=== PATIENT | female | born 1985 | race Caucasian/White ===

== ENCOUNTER 2017-12-23 18:22 | Emergency (ER) | payer OTHER ==
[~2017-12-23] VITALS: Ht 165.1 cm; Wt 84.8 kg
[2017-12-23 18:48] VITALS: BP 104/61
--- NOTE | 2017-12-23 20:11 | NUR ---
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 Patient denies any vaginal bleeding. Patient states she is 9 wks. LMP 10/13/17. A1. pt reports that the pain feels like cramping. a&o x 4. gcs 15. cms intact. rr even and unlabored. lungs bilaterally clear. er md conde notified. pt needs met. safety precautions in place. will continue to monitor.
--- NOTE | 2017-12-23 20:21 | NUR ---
Dr. Guzman evaluating patient at bedside.
[2017-12-23 20:23] LABS: BASOPHILS % (AUTO) 0.4 % (0.0-2.0); EOSINOPHILS # (AUTO) 0.2 K/uL (0-0.4); EOSINOPHILS % (AUTO) 1.6 % (0.0-4.0); HEMATOCRIT 40.3 % (36-48); HEMOGLOBIN 12.9 g/dL (12.0-16.0); LYMPHOCYTES # (AUTO) 2.8 K/uL (2.5-16.5); LYMPHOCYTES % (AUTO) 24.7 % (20.5-51.1); MEAN CORPUSCULAR HEMOGLOBIN 27 pg (27-31); MEAN CORPUSCULAR HGB CONC 32 g/dL (33-37); MEAN CORPUSCULAR VOLUME 83.5 fL (80-94); MONOCYTES % (AUTO) 8.8 % (1.7-9.3); NEUTROPHILS # (AUTO) 7.2 K/uL (1.8-7.7); NEUTROPHILS % (AUTO) 64.5 % (42.2-75.2); PLATELET COUNT (AUTO) 211 K/uL (140-450); RED BLOOD CELL COUNT(AUTO) 4.83 MIL/uL (4.20-5.40); RED CELL DISTRIBUTION WIDTH 15.4 % (11.6-13.7); WHITE BLOOD COUNT (AUTO) 11.2 K/uL (4.8-10.8)
[2017-12-23 20:39] LABS: ANION GAP 7.3 (8-16); CARBON DIOXIDE 24.8 mmol/L (21-32); CREATININE 0.7 mg/dL (0.6-1.3); POTASSIUM 3.1 mmol/L (3.5-5.1)
[2017-12-23 20:40] LABS: APPEARANCE,URINE CLEAR (CLEAR); BILIRUBIN,URINE NEGATIVE (NEGATIVE); BLOOD, URINE NEGATIVE (NEGATIVE); COLOR,URINE YELLOW (YELLOW); LEUKOCYTE ESTERASE ,URINE NEGATIVE (NEGATIVE); NITRITE, URINE NEGATIVE (NEGATIVE); PH,URINE 5.5 (5.0-9.0); UGLUCOSE NEGATIVE (NEGATIVE)
[2017-12-23 20:44] LABS: ALBUMIN 3.4 g/dL (3.4-5.0); TOTAL BILIRUBIN 0.2 mg/dL (0.0-1.0)
--- NOTE | 2017-12-23 20:54 | NUR ---
ULTRASOUND AT BEDSIDE, NO S/S OF DISTRESS NOTED AT THE MOMENT.
--- NOTE | 2017-12-23 20:54 | NUR ---
Allegra santana in [facility] - 12/23/17 at 2054 by GINNA Ultrasound at bedside.
--- NOTE | 2017-12-23 20:58 | NUR ---
Report given to CHIQUIS Easley at this time.
[2017-12-23] MEDS ORDERED: POTASSIUM CHLORIDE 10 MEQ TABER PO ONE (21:40)
[2017-12-23 22:24] VITALS: BP 131/86
--- NOTE | 2017-12-23 22:24 | NUR ---
Patient discharged with v/s stable. Written and verbal after care instructions given and explained. Patient verbalized understanding. Ambulatory with steady gait. All questions addressed prior to discharge. Advised to follow up with PMD, COPIES OF LABS AND ULTRASOUND PROVIDED TO PT.
== END 2017-12-23 22:24 | disposition home or self-care (01) ==
LOC: MED 18:22
DX: O20.0 Threatened abortion (principal); O26.891 Other specified pregnancy related conditions, first trimester; E87.6 Hypokalemia; Z3A.09 9 weeks gestation of pregnancy
CPT/HCPCS: 36415; 76817; 80053; 81003; 81025; 84702; 85025; 86900; 86901; 99285; Q0092

== ENCOUNTER 2018-04-29 14:33 | Inpatient (IN) | payer MEDICAID, OTHER ==
[~2018-04-29] VITALS: Ht 165.1 cm; Wt 86.2 kg
[2018-04-29 14:36] VITALS: BP 119/66
--- NOTE | 2018-04-29 14:48 | NUR ---
32/F C/O INTERMITTENT LLQ PAIN RADIATING LOWER BACK X TODAY. YELLOWISH VAG DISCHARGE LAST BM TODAY, STRAINING. A0 TWINS FIRST LMP 10/13/2017. DENIES N/V/D; SKIN IS PINK/WARM/DRY; AAOX4 WITH EVEN AND STEADY GAIT; LUNGS CLEAR BL; PT DENIES ANY FEVER, CP, SOB, OR COUGH AT THIS TIME; PATIENT STATES PAIN OF 8/10 AT THIS TIME; PATIENT POSITIONED FOR COMFORT; HOB ELEVATED; BEDRAILS UP X2; BED DOWN. ER MD MADE AWARE OF PT STATUS.
--- NOTE | 2018-04-29 14:53 | NUR ---
Patient being evaluated by DR LAWSON at bedside.
--- NOTE | 2018-04-29 15:22 | NUR ---
PATIENT IS 27 WEEKS AND IS TRANSFETRED TO LABOR AND DELIVERY VIA WHEELCHAIR.
[2018-04-29] MEDS ORDERED: LACTATED RINGERS 1,000 ML IV SCH (16:15)
[2018-04-29] MEDS ORDERED: PREN-546 PO (16:21)
[2018-04-29 16:32] VITALS: BP 106/59
[2018-04-29 19:03] LABS: BASOPHILS % (AUTO) 0.2 % (0.0-2.0); EOSINOPHILS # (AUTO) 0.2 K/uL (0-0.4); EOSINOPHILS % (AUTO) 1.7 % (0.0-4.0); HEMOGLOBIN 12.4 g/dL (12.0-16.0); LYMPHOCYTES # (AUTO) 2.8 K/uL (2.5-16.5); LYMPHOCYTES % (AUTO) 28.3 % (20.5-51.1); MEAN CORPUSCULAR HEMOGLOBIN 30 pg (27-31); MEAN CORPUSCULAR HGB CONC 33 g/dL (33-37); MEAN CORPUSCULAR VOLUME 88.4 fL (80-94); MONOCYTES # (AUTO) 0.7 K/uL (0.8-1.0); MONOCYTES % (AUTO) 7.1 % (1.7-9.3); NEUTROPHILS # (AUTO) 6.2 K/uL (1.8-7.7); NEUTROPHILS % (AUTO) 62.7 % (42.2-75.2); PLATELET COUNT (AUTO) 178 K/uL (140-450); RED BLOOD CELL COUNT(AUTO) 4.18 MIL/uL (4.20-5.40); RED CELL DISTRIBUTION WIDTH 14.3 % (11.6-13.7); WHITE BLOOD COUNT (AUTO) 9.9 K/uL (4.8-10.8)
[2018-04-29 19:20] LABS: APPEARANCE,URINE CLEAR (CLEAR); COLOR,URINE YELLOW (YELLOW)
[2018-04-29 19:21] LABS: LEUKOCYTE ESTERASE ,URINE NEGATIVE (NEGATIVE); NITRITE, URINE NEGATIVE (NEGATIVE)
[2018-04-29 19:22] LABS: BILIRUBIN,URINE NEGATIVE (NEGATIVE); BLOOD, URINE TRACE (NEGATIVE); UGLUCOSE NEGATIVE (NEGATIVE)
[2018-04-29 19:23] LABS: RBC,URINE 3-10 (FEW) /HPF (0-5); WBC,URINE 0-5 (RARE) /HPF (0-5)
[2018-04-29] MEDS ORDERED: ACETAMINOPHEN 325 MG TAB PO STA (19:50)
[2018-04-29] MEDS ORDERED: ACETAMINOPHEN 325 MG TAB ONE (19:58)
== END 2018-04-29 20:30 | disposition home or self-care (01) | DRG 566 ==
LOC: MED 14:33 → EDSTATUS 15:06 → MLD 15:30 → PREOBSVTOIN 15:47
PROVIDERS: ADMIT Obstetrics & Gynecology; ATTEND Obstetrics & Gynecology
DX: O26.893 Other specified pregnancy related conditions, third trimester (principal); E66.9 Obesity, unspecified; M54.9 Dorsalgia, unspecified; R10.9 Unspecified abdominal pain; O99.213 Obesity complicating pregnancy, third trimester; Z3A.29 29 weeks gestation of pregnancy
CPT/HCPCS: 36415; 76770; 76805; 81001; 85025; 87086; J7120; Q0092

== ENCOUNTER 2019-10-29 20:11 | Emergency (ER) | payer MEDICAID, SELFPAY ==
[~2019-10-29] VITALS: Ht 160 cm; Wt 87.1 kg
[~2019-10-29 20:11] MED LIST: PREN-546 PO
[2019-10-29 20:41] VITALS: BP 135/81
[2019-10-29 21:52] VITALS: BP 135/81
== END 2019-10-29 21:53 | disposition home or self-care (01) ==
LOC: MED 20:11 → EEVIPCON 20:11 → MED 21:53
DX: J06.9 Acute upper respiratory infection, unspecified (principal); Z20.828 Contact with and (suspected) exposure to other viral communicable diseases
CPT/HCPCS: 36415; 99283

== ENCOUNTER 2021-10-07 22:10 | Emergency (ER) | payer MEDICAID, SELFPAY ==
[~2021-10-07] VITALS: Ht 162.6 cm; Wt 83.9 kg
[2021-10-07 22:21] VITALS: BP 129/74
--- NOTE | 2021-10-07 22:21 | NUR ---
TO BED AMBULATORY WITH DAUGHTER
--- NOTE | 2021-10-07 22:38 | NUR ---
RIGHT THUMB REDENED, WARM TO TOUCH, POSITIVE SWELLLING, NO OPEN WOUND
[2021-10-07] MEDS ORDERED: NAPR-54 PO (23:18)
[2021-10-07] MEDS ORDERED: CEPH-588 PO (23:18)
[2021-10-07] MEDS ORDERED: IBUPROFEN 600 MG TAB PO ONE (23:25)
[2021-10-08 00:54] VITALS: BP 121/60
--- NOTE | 2021-10-08 00:56 | NUR ---
Patient discharged with v/s stable. Written and verbal after care instructions given and explained. Patient alert, oriented and verbalized understanding of instructions. Ambulatory with steady gait. All questions addressed prior to discharge. ID band removed. Patient advised to follow up with PMD. Rx of KEFLEX AND NAPROSYN given. Patient educated on indication of medication including possible reaction and side effects. Opportunity to ask questions provided and answered.
== END 2021-10-08 00:54 | disposition home or self-care (01) ==
LOC: MED 22:10
DX: L03.011 Cellulitis of right finger (principal); Z79.899 Other long term (current) drug therapy; Z98.890 Other specified postprocedural states
CPT/HCPCS: 73140; 99283

== ENCOUNTER 2022-02-05 18:50 | Emergency (ER) | payer MEDICAID ==
[~2022-02-05] VITALS: Ht 160 cm; Wt 86.6 kg
[~2022-02-05 18:50] MED LIST changes: +CEPH-588 PO; +NAPR-54 PO; -PREN-546 PO
[2022-02-05 19:05] VITALS: BP 134/76
[2022-02-05] MEDS ORDERED: PRED20TA5 PO (20:14)
[2022-02-05] MEDS ORDERED: HYDR28CR38 TP (20:14)
[2022-02-05] MEDS ORDERED: DIPH25TA53 PO (20:14)
[2022-02-05 21:16] VITALS: BP 134/76
--- NOTE | 2022-02-05 21:16 | NUR ---
Patient discharged with v/s stable. Written and verbal after care instructions given and explained. Patient alert, oriented and verbalized understanding of instructions. Ambulatory with steady gait. All questions addressed prior to discharge. ID band removed. Patient advised to follow up with PMD. Rx of BENDRYL, CORTIZONE CREME AND PREDNISONE given. Patient educated on indication of medication including possible reaction and side effects. Opportunity to ask questions provided and answered.
== END 2022-02-05 21:16 | disposition home or self-care (01) ==
LOC: MED 18:50
DX: R21 Rash and other nonspecific skin eruption (principal)
CPT/HCPCS: 99283